=== PATIENT | female | born 1950 | race Caucasian/White ===

== ENCOUNTER 2021-03-25 16:27 | Emergency (ER) | payer MEDICARE | END 2021-03-25 17:32 | disposition home or self-care (01) | LOC: CSHERS 16:27 | DX: G89.29 Other chronic pain (principal); R21 Rash and other nonspecific skin eruption; I73.9 Peripheral vascular disease, unspecified; F17.290 Nicotine dependence, other tobacco product, uncomplicated; I10 Essential (primary) hypertension; J44.9 Chronic obstructive pulmonary disease, unspecified; F17.210 Nicotine dependence, cigarettes, uncomplicated; Z79.82 Long term (current) use of aspirin; Z79.899 Other long term (current) drug therapy | CPT/HCPCS: 99282 ==